=== PATIENT | male | born 1960 | race Caucasian/White ===

== ENCOUNTER 2025-05-05 11:11 | Inpatient (IN) | payer MEDICARE, MEDICAID ==
[~2025-05-05] VITALS: Ht 322.6 cm; Wt 59.0 kg
[~2025-05-05 11:11] MED LIST: INSU100I28 SQ; NEED-123 SQ; [UNRECOGNIZED DRUG - CODE] MC
[2025-05-05 11:48] VITALS: O2SAT 98
[2025-05-05 12:41] LABS: BASOPHILS % 1.0 % (0.0-2.0); EOSINOPHILS % 1.2 % (0.0-5.0); HEMATOCRIT. 53.2 % (42.0-52.0); HEMOGLOBIN. 16.8 g/dL (14.0-18.0); LYMPHOCYTES % 24.2 % (20.0-50.0); MEAN PLATELET VOLUME 10.7 fl (7.4-10.4); MONOCYTES % 8.7 % (2.0-8.0); NEUTROPHILS % 64.9 % (40.0-76.0); PLATELET 164 x1000/uL (130-400); RED BLOOD CELL COUNT 5.83 mill/uL (4.7-6.1); RED CELL DISTRIBUTION WIDTH 17.9 % (11.6-14.6)
[2025-05-05 12:46] LABS: CREATININE 1.0 mg/dL (0.6-1.3); UREA NITROGEN BLOOD 16 mg/dL (9-23)
[2025-05-05 12:48] LABS: ASPARTATE AMINOTRANSFERASE 23 IU/L (<34); BILIRUBIN DIRECT 0.8 mg/dL (<=3.0); BILIRUBIN TOTAL 1.6 mg/dL (0.1-1.0); PROTEIN TOTAL 7.2 g/dL (6.0-8.3)
[2025-05-05] MEDS: SODIUM CHLORIDE 0.9% 1,000 ML IV ONE (12:51)
[2025-05-05] MEDS ORDERED: AZITHROMYCIN 500 MG TABLET PO ONE (14:15)
[2025-05-05] MEDS ORDERED: AMOXICILLIN/POTASSIUM CLAVULANATE 875/125MG TAB PO ONE (14:15)
[2025-05-05] MEDS: AMOXICILLIN/POTASSIUM CLAVULANATE 875/125MG TAB PO SCH ×2 (15:01→22:30)
[2025-05-05] MEDS: AZITHROMYCIN 500 MG TABLET PO SCH (15:01)
[2025-05-05] MEDS ORDERED: ONDANSETRON HCL 4MG/2ML INJ IV PRN (15:30)
[2025-05-05] MEDS ORDERED: CLONIDINE 0.1MG TABLET PO PRN (15:30)
[2025-05-05] MEDS ORDERED: ACETAMINOPHEN 325MG TABLET PO PRN ×2 (15:30)
[2025-05-05] MEDS ORDERED: DOCUSATE SODIUM 100MG CAPSULE PO PRN (15:30)
[2025-05-05] MEDS ORDERED: IPRATROPIUM/ALBUTEROL 0.5-3(2.5)MG/3ML NEB HHN PRN (15:30)
[2025-05-05] MEDS ORDERED: DEXTROSE 50% WATER 50ML SYRINGE IV PRN (15:45)
[2025-05-05] MEDS: PANTOPRAZOLE 40MG DR TABLET PO SCH (16:15)
[2025-05-05 16:43] LABS: INR 1.2
[2025-05-05] MEDS: BLOOD SUGAR DIAGNOSTIC STRIP TEST SCH (17:00)
[2025-05-05] MEDS: EMPAGLIFLOZIN 25MG TABLET PO SCH (17:00)
[2025-05-05] MEDS: INSULIN LISPRO 100 UNITS/ML SUBCUT SCH (17:16)
[2025-05-05 18:54] VITALS: BP 125/89; PULSE 101; RESP 18; TEMP 32.7484
[2025-05-05 20:00] VITALS: BP 127/85; PULSE 97; RESP 18; TEMP 35.9; O2SAT 96
[2025-05-05] MEDS: CARVEDILOL 6.25 MG TABLET PO SCH (22:29)
[2025-05-05] MEDS: ATORVASTATIN CALCIUM 40MG TABLET PO SCH (22:30)
[2025-05-05] MEDS: INSULIN GLARGINE 100 UNITS/ML SUBCUT SCH (22:42)
[2025-05-06] VITALS: BP 105/65; PULSE 73; RESP 19; TEMP 35.6; O2SAT 94
[2025-05-06 04:00] VITALS: BP 96/62; PULSE 74; RESP 19; TEMP 36.4; O2SAT 93
[2025-05-06] MEDS: INSULIN LISPRO 100 UNITS/ML SUBCUT SCH (06:35)
[2025-05-06 08:05] LABS: BASOPHILS % 0.8 % (0.0-2.0); EOSINOPHILS % 2.2 % (0.0-5.0); HEMATOCRIT. 51.8 % (42.0-52.0); HEMOGLOBIN. 16.5 g/dL (14.0-18.0); LYMPHOCYTES % 26.3 % (20.0-50.0); MEAN PLATELET VOLUME 11.3 fl (7.4-10.4); MONOCYTES % 10.7 % (2.0-8.0); NEUTROPHILS % 60.0 % (40.0-76.0); PLATELET 165 x1000/uL (130-400); RED BLOOD CELL COUNT 5.68 mill/uL (4.7-6.1); RED CELL DISTRIBUTION WIDTH 18.0 % (11.6-14.6)
[2025-05-06 08:17] LABS: CREATININE 0.9 mg/dL (0.6-1.3)
[2025-05-06 08:18] LABS: TRIGLYCERIDE 85 mg/dL (0-150); UREA NITROGEN BLOOD 24 mg/dL (9-23)
[2025-05-06 08:19] LABS: LDL CHOLESTEROL 50 mg/dL (5-100)
[2025-05-06 08:22] LABS: T4 FREE 1.31 ng/dL (0.89-1.76)
[2025-05-06] MEDS: ASPIRIN 81MG EC TABLET PO SCH (09:46)
[2025-05-06] MEDS: AZITHROMYCIN 500 MG TABLET PO SCH (09:46)
[2025-05-06] MEDS: CLOPIDOGREL 75MG TABLET PO SCH (09:46)
[2025-05-06 10:12] LABS: TROPONIN I HIGH SENSITIVITY 21 ng/L (3.0-53)
[2025-05-06 10:13] LABS: BILIRUBIN DIRECT 0.6 mg/dL (<=3.0)
[2025-05-06 10:14] LABS: ASPARTATE AMINOTRANSFERASE 32 IU/L (<34); BILIRUBIN TOTAL 1.2 mg/dL (0.1-1.0); PROTEIN TOTAL 6.4 g/dL (6.0-8.3)
[2025-05-06 12:00] VITALS: BP 125/80; PULSE 68; RESP 16; TEMP 36.5; O2SAT 97
[2025-05-06 16:00] VITALS: BP 113/72; PULSE 65; RESP 16; TEMP 36.3; O2SAT 100
[2025-05-06 20:00] VITALS: BP 101/64; PULSE 71; RESP 18; TEMP 35.3; O2SAT 99
[2025-05-07] VITALS: BP 95/56; PULSE 66; RESP 18; TEMP 36; O2SAT 96
[2025-05-07 04:00] VITALS: BP 125/91; PULSE 75; RESP 18; TEMP 36.4; O2SAT 99
[2025-05-07 07:13] LABS: ALPHA FETOPROTEIN TUMOR MARKER < 1.8 ng/mL (0.0-8.4); CA 19-9 28 U/mL (0-35); CANCER ANTIGEN 125 69.6 U/mL (Not Estab.); CARCINOEMBRYONIC AG - SEND OUT 2.4 ng/mL (0.0-4.7)
[2025-05-07 08:00] VITALS: BP 104/75; PULSE 73; RESP 16; TEMP 36.6; O2SAT 95
[2025-05-07 12:00] VITALS: BP 122/87; PULSE 69; RESP 15; TEMP 36.1; O2SAT 99
[2025-05-07 14:04] LABS: BASOPHILS % 0.8 % (0.0-2.0); EOSINOPHILS % 1.2 % (0.0-5.0); HEMATOCRIT. 48.7 % (42.0-52.0); HEMOGLOBIN. 15.5 g/dL (14.0-18.0); LYMPHOCYTES % 24.4 % (20.0-50.0); MEAN PLATELET VOLUME 10.7 fl (7.4-10.4); MONOCYTES % 8.5 % (2.0-8.0); NEUTROPHILS % 65.1 % (40.0-76.0); PLATELET 147 x1000/uL (130-400); RED BLOOD CELL COUNT 5.28 mill/uL (4.7-6.1); RED CELL DISTRIBUTION WIDTH 18.2 % (11.6-14.6)
[2025-05-07 14:24] LABS: CREATININE 1.1 mg/dL (0.6-1.3); UREA NITROGEN BLOOD 30 mg/dL (9-23)
[2025-05-07] MEDS: INSULIN LISPRO 100 UNITS/ML SUBCUT SCH (17:10)
[2025-05-07 20:00] VITALS: BP 120/86; PULSE 72; RESP 18; TEMP 36.2; O2SAT 95
[2025-05-07] MEDS: INSULIN GLARGINE 100 UNITS/ML SUBCUT SCH (21:01)
[2025-05-08] VITALS: BP 120/85; PULSE 75; RESP 18; TEMP 36.3; O2SAT 95
[2025-05-08 04:00] VITALS: BP 120/87; PULSE 78; RESP 18; TEMP 36.1; O2SAT 97
[2025-05-08 07:47] LABS: BASOPHILS % 1.3 % (0.0-2.0); EOSINOPHILS % 1.4 % (0.0-5.0); HEMATOCRIT. 50.2 % (42.0-52.0); HEMOGLOBIN. 15.7 g/dL (14.0-18.0); LYMPHOCYTES % 24.5 % (20.0-50.0); MEAN PLATELET VOLUME 11.6 fl (7.4-10.4); MONOCYTES % 9.9 % (2.0-8.0); NEUTROPHILS % 62.9 % (40.0-76.0); PLATELET 149 x1000/uL (130-400); RED BLOOD CELL COUNT 5.41 mill/uL (4.7-6.1); RED CELL DISTRIBUTION WIDTH 18.8 % (11.6-14.6)
[2025-05-08 08:00] VITALS: BP 127/89; PULSE 71; RESP 17; TEMP 36.5; O2SAT 99
[2025-05-08 08:00] LABS: CREATININE 1.2 mg/dL (0.6-1.3)
[2025-05-08 08:01] LABS: UREA NITROGEN BLOOD 25 mg/dL (9-23)
[2025-05-08] MEDS ORDERED: IOHEXOL-300 100 ML BOTTLE ONE (10:26)
[2025-05-08 11:53] LABS: PROTEIN BODY FLUID < 2.0 gm/dL
[2025-05-08 12:00] VITALS: BP 98/56; PULSE 66; RESP 16; TEMP 36.6; O2SAT 66; O2SAT 98
[2025-05-08] MEDS: GUAIFENESIN 200MG/10ML SUGAR FREE UDC PO PRN (13:03)
[2025-05-08 16:00] VITALS: BP 105/58; PULSE 68; RESP 17; TEMP 36.7; O2SAT 98
[2025-05-08 20:00] VITALS: BP 83/43; PULSE 68; RESP 18; TEMP 36.6; O2SAT 96
[2025-05-09] VITALS: BP 90/55; PULSE 65; RESP 17; TEMP 36.4; O2SAT 95
[2025-05-09 04:00] VITALS: BP 107/70; PULSE 70; RESP 18; TEMP 36.6; O2SAT 97
[2025-05-09 07:11] LABS: BASOPHILS % 0.5 % (0.0-2.0); EOSINOPHILS % 1.2 % (0.0-5.0); HEMATOCRIT. 48.1 % (42.0-52.0); HEMOGLOBIN. 15.2 g/dL (14.0-18.0); LYMPHOCYTES % 18.6 % (20.0-50.0); MEAN PLATELET VOLUME 11.1 fl (7.4-10.4); MONOCYTES % 7.8 % (2.0-8.0); NEUTROPHILS % 71.9 % (40.0-76.0); PLATELET 130 x1000/uL (130-400); RED BLOOD CELL COUNT 5.20 mill/uL (4.7-6.1); RED CELL DISTRIBUTION WIDTH 18.4 % (11.6-14.6)
[2025-05-09 07:41] LABS: CREATININE 1.0 mg/dL (0.6-1.3); UREA NITROGEN BLOOD 24 mg/dL (9-23)
[2025-05-09 08:00] VITALS: BP 99/66; PULSE 69; RESP 18; TEMP 36.4; O2SAT 97
[2025-05-09 12:00] VITALS: BP 101/67; PULSE 67; RESP 17; TEMP 36.4; O2SAT 97
[2025-05-09] MEDS ORDERED: ASPI-1406 PO (13:03)
[2025-05-09] MEDS ORDERED: LANTUSUD SUBCUT (13:03)
[2025-05-09] MEDS ORDERED: CLOP-31 PO (13:03)
[2025-05-09] MEDS ORDERED: LIP40 PO (13:03)
[2025-05-09] MEDS ORDERED: EMPA25TA PO (13:03)
[2025-05-09] MEDS ORDERED: COR6 PO (13:03)
[2025-05-09] MEDS ORDERED: AZIT500T8 PO (13:05)
[2025-05-09 13:57] VITALS: BP 101/67; PULSE 67; RESP 17; TEMP 97.5
== END 2025-05-09 18:12 | disposition home or self-care (01) | DRG 637 ==
LOC: ER 11:46 → 7EST 14:08 → EDBEDREQ 14:12 → EDBEDREQTM 14:12
PROVIDERS: ADMIT Internal Medicine; ATTEND Internal Medicine
PROC: 0W993ZZ Drainage of Right Pleural Cavity, Percutaneous Approach (ICD-10-PCS; principal; 2025-05-08)
DX: E11.65 Type 2 diabetes mellitus with hyperglycemia (principal); J18.9 Pneumonia, unspecified organism; I50.22 Chronic systolic (congestive) heart failure; D84.9 Immunodeficiency, unspecified; Z68.1 Body mass index [BMI] 19.9 or less, adult; C79.71 Secondary malignant neoplasm of right adrenal gland; I31.39 Other pericardial effusion (noninflammatory); J44.0 Chronic obstructive pulmonary disease with (acute) lower respiratory infection; I11.0 Hypertensive heart disease with heart failure; E78.00 Pure hypercholesterolemia, unspecified; I44.4 Left anterior fascicular block; F10.10 Alcohol abuse, uncomplicated; F17.210 Nicotine dependence, cigarettes, uncomplicated; E80.6 Other disorders of bilirubin metabolism; I25.10 Atherosclerotic heart disease of native coronary artery without angina pectoris; G40.909 Epilepsy, unspecified, not intractable, without status epilepticus; I25.5 Ischemic cardiomyopathy; B19.20 Unspecified viral hepatitis C without hepatic coma; I27.20 Pulmonary hypertension, unspecified; R62.7 Adult failure to thrive; E86.0 Dehydration; I25.2 Old myocardial infarction; Z85.038 Personal history of other malignant neoplasm of large intestine; Z90.49 Acquired absence of other specified parts of digestive tract; Z86.73 Personal history of transient ischemic attack (TIA), and cerebral infarction without residual deficits; Z79.02 Long term (current) use of antithrombotics/antiplatelets; Z79.4 Long term (current) use of insulin; Z79.82 Long term (current) use of aspirin; Z79.84 Long term (current) use of oral hypoglycemic drugs; Z79.899 Other long term (current) drug therapy; Z91.199 Patient's noncompliance with other medical treatment and regimen due to unspecified reason
CPT/HCPCS: 32555; 36415; 71045; 71250; 74177; 76604; 80048; 80061; 80076; 82010; 82105; 82378; 82533; 82550; 82962; 83036; 83519; 83615; 83735; 83880; 83930; 84145; 84439; 84443; 84484; 85025; 86301; 86304; 93005; 93306; 93970; 97162; 97166; 99285; A4606; J1815; J7030; Q9967

== ENCOUNTER 2025-06-07 23:47 | Inpatient (IN) | payer MEDICAID, MEDICARE ==
[~2025-06-07] VITALS: Ht 175.3 cm; Wt 60.0 kg
[~2025-06-07 23:47] MED LIST changes: +ASPI-1406 PO; +AZIT500T8 PO; +CLOP-31 PO; +COR6 PO; +EMPA25TA PO; +LANTUSUD SUBCUT; +LIP40 PO
[2025-06-08] VITALS (51 sets, daily range): BP systolic 117–159; BP diastolic 84–121; PULSE 63–85; RESP 12–35; TEMP 36.3–36.7; O2SAT 82–100
[2025-06-08] MEDS: SODIUM CHLORIDE 0.9% (SEPSIS BOLUS) IV ONE (00:21)
[2025-06-08] MEDS: PIPERACILLIN/TAZO 3.375G/50ML 50 ML IV ONE (00:24)
[2025-06-08 00:35] LABS: BASOPHILS % 1.3 % (0.0-2.0); EOSINOPHILS % 1.0 % (0.0-5.0); HEMATOCRIT. 46.0 % (42.0-52.0); HEMOGLOBIN. 14.5 g/dL (14.0-18.0); LYMPHOCYTES % 22.6 % (20.0-50.0); MEAN PLATELET VOLUME 10.0 fl (7.4-10.4); MONOCYTES % 5.7 % (2.0-8.0); NEUTROPHILS % 69.4 % (40.0-76.0); PLATELET 123 x1000/uL (130-400); RED BLOOD CELL COUNT 4.91 mill/uL (4.7-6.1); RED CELL DISTRIBUTION WIDTH 19.3 % (11.6-14.6)
[2025-06-08 00:49] LABS: CREATININE 1.1 mg/dL (0.6-1.3); UREA NITROGEN BLOOD 13 mg/dL (9-23)
[2025-06-08] MEDS: VANCOMYCIN 1G PREMIX 200 ML IV SCH (00:49)
[2025-06-08 00:50] LABS: TROPONIN I HIGH SENSITIVITY 17 ng/L (3.0-53)
[2025-06-08] MEDS: MAGNESIUM 2 G PREMIX 50 ML IV ONE (00:50)
[2025-06-08 00:51] LABS: ASPARTATE AMINOTRANSFERASE 30 IU/L (<34); BILIRUBIN DIRECT 0.6 mg/dL (<=3.0); PHOSPHORUS 4.2 mg/dL (2.5-4.9)
[2025-06-08 00:52] LABS: BILIRUBIN TOTAL 1.1 mg/dL (0.1-1.0); PROTEIN TOTAL 6.3 g/dL (6.0-8.3)
[2025-06-08 01:11] LABS: BG BASE EXCESS -7.8 mmol/L (-2.0-3.0); BG CARBOXYHEMOGLOBIN 2.4 % (0.5-1.5); BG DEOXYHEMOGLOBIN 0.4 % (0.0-5.0); BG FRACTION INSPIRED OXYGEN 100; BG HCO3 ACT 18.9 mmol/L (21.0-28.0); BG METHEMOGLOBIN 0.2 % (0.5-1.5); BG OXYGEN SATURATION 99.6 % (94.0-98.0); BG OXYHEMOGLOBIN 97.0 % (94.0-98.0); BG PCO2 42.7 mmHg (35.0-48.0); BG PH 7.263 (7.350-7.450); BG PO2 214.5 mmHg (83.0-108.0); BG TOTAL HEMOGLOBIN 15.0 g/dL (13.5-17.5); BG TOTAL RESPIRATORY RATE 18 b/min; BG VENT MODE MASK - BIPAP
[2025-06-08] MEDS: LEVETIRACETAM 500MG PREMIX 100 ML IV ONE (01:14)
[2025-06-08] MEDS ORDERED: DEXTROSE 50% WATER 50ML SYRINGE IV PRN (01:15)
[2025-06-08] MEDS ORDERED: POTASSIUM CHLORIDE 40 MEQ in SODIUM CHLORIDE 0.9% 230 ML IV PRN ×2 (01:15→03:15)
[2025-06-08] MEDS ORDERED: BLOOD SUGAR DIAGNOSTIC STRIP TEST PRN ×2 (01:15→03:15)
[2025-06-08] MEDS ORDERED: MAGNESIUM 2 G PREMIX 50 ML IV PRN ×2 (01:15→03:15)
[2025-06-08] MEDS ORDERED: KCL 20MEQ/100ML PREMIX 100 ML IV PRN ×2 (01:15→03:15)
[2025-06-08] MEDS ORDERED: SODIUM PHOSPHATE 15 MMOL in SODIUM CHLORIDE 0.9% 245 ML IV PRN ×2 (01:15→03:15)
[2025-06-08] MEDS ORDERED: INSULIN REGULAR (DRIP) 100 UNITS in SODIUM CHLORIDE 0.9% 99 ML IV SCH ×2 (01:15→03:15)
[2025-06-08] MEDS: ALBUTEROL (0.083%) 2.5MG/3ML NEB HHN ONE (01:44)
[2025-06-08] MEDS: IPRATROPIUM BROMIDE (0.02%) 0.5MG/2.5ML NEB HHN ONE (01:44)
[2025-06-08] MEDS: BLOOD SUGAR DIAGNOSTIC STRIP TEST SCH ×4 (01:45→17:12)
[2025-06-08] MEDS: INSULIN REGULAR 100U/100ML PMX 100 ML IV SCH (01:45)
[2025-06-08] MEDS: FUROSEMIDE 100MG/10ML VIAL IVP ONE (01:57)
[2025-06-08 02:36] LABS: INR 1.3
[2025-06-08] MEDS ORDERED: DOCUSATE SODIUM 100MG CAPSULE PO PRN (03:15)
[2025-06-08] MEDS ORDERED: IPRATROPIUM/ALBUTEROL 0.5-3(2.5)MG/3ML NEB HHN PRN (03:15)
[2025-06-08] MEDS ORDERED: CLONIDINE 0.1MG TABLET PO PRN (03:15)
[2025-06-08] MEDS ORDERED: ONDANSETRON HCL 4MG/2ML INJ IV PRN (03:15)
[2025-06-08] MEDS ORDERED: ACETAMINOPHEN 325MG TABLET PO PRN ×2 (03:15)
[2025-06-08] MEDS ORDERED: MAGNESIUM/ALUMINUM HYDROXIDE/SIMETHICONE 30ML UDC PO PRN (03:15)
[2025-06-08] MEDS ORDERED: LORAZEPAM 2MG/ML UD SYRINGE IV PRN (03:45)
[2025-06-08] MEDS ORDERED: HYDRALAZINE 20MG/ML VIAL IV PRN (04:45)
[2025-06-08] MEDS: FUROSEMIDE 40MG/4ML VIAL IVP SCH (08:10)
[2025-06-08] MEDS: PANTOPRAZOLE SODIUM 40 MG/VIAL IV SCH (08:10)
[2025-06-08] MEDS: ENOXAPARIN 40MG/0.4ML SYR SUBCUT SCH (08:10)
[2025-06-08] MEDS: INSULIN LISPRO 100 UNITS/ML SUBCUT SCH ×3 (08:20→17:18)
[2025-06-08] MEDS ORDERED: LEVETIRACETAM 500MG PREMIX 100 ML IV SCH (09:00)
[2025-06-08 11:37] LABS: PLATELET 142 x1000/uL (130-400); RED BLOOD CELL COUNT 5.27 mill/uL (4.7-6.1); RED CELL DISTRIBUTION WIDTH 19.4 % (11.6-14.6)
[2025-06-08 11:49] LABS: CREATININE 0.9 mg/dL (0.6-1.3); UREA NITROGEN BLOOD 12 mg/dL (9-23)
[2025-06-08 11:51] LABS: PHOSPHORUS 3.6 mg/dL (2.5-4.9)
[2025-06-08] MEDS: LEVETIRACETAM 500MG PREMIX 100 ML IV SCH (12:43)
[2025-06-08] MEDS: IPRATROPIUM/ALBUTEROL 0.5-3(2.5)MG/3ML NEB HHN SCH (14:05)
[2025-06-08] MEDS: THIAMINE HCL 100 MG/1 ML 2ML VIAL IM SCH (14:44)
[2025-06-08] MEDS: SODIUM CHLORIDE 0.9% 500 ML IV ONE (14:44)
[2025-06-08] MEDS: LORAZEPAM 2MG/ML UD SYRINGE IV SCH (15:39)
[2025-06-08] MEDS: DEXT 5%/0.9% NACL 500 ML IV ONE (18:12)
[2025-06-08] MEDS: INSULIN GLARGINE 100 UNITS/ML SUBCUT SCH (22:59)
[2025-06-09] VITALS (22 sets, daily range): BP systolic 102–162; BP diastolic 64–109; PULSE 52–86; RESP 10–42; TEMP 35.7–36.7; O2SAT 90–100
[2025-06-09 00:07] LABS: CLARITY URINE CLOUDY (CLEAR); COLOR URINE YELLOW (YELLOW); GLUCOSE URINE TRACE (NEGATIVE); KETONES URINE NEGATIVE (NEGATIVE); LEUKOCYTE ESTERASE URINE TRACE (NEGATIVE); NITRITE URINE NEGATIVE (NEGATIVE); OCCULT BLOOD URINE 3+ (NEGATIVE); PH URINE 5.0 (4.5-8.0); PROTEIN URINE 1+ (NEGATIVE); SPECIFIC GRAVITY URINE 1.012 (1.005-1.030); UROBILINOGEN URINE 0.2 E.U./dL (0.2-1.0)
[2025-06-09 00:42] LABS: *AMPHETAMINES SCREEN URINE NEGATIVE (NEGATIVE); *BARBITURATES SCREEN URINE NEGATIVE (NEGATIVE); *BENZODIAZEPINES SCREEN URINE PRESUMPTIVE POSITIVE (NEGATIVE); *COCAINE SCREEN URINE NEGATIVE (NEGATIVE); CANNABINOID URINE SCREEN NEGATIVE (NEGATIVE); ECSTASY MDMA SCREEN URINE NEGATIVE (NEGATIVE); METHADONE URINE SCREEN NEGATIVE (NEGATIVE); OPIATES URINE SCREEN NEGATIVE (NEGATIVE); PHENCYCLIDINE URINE SCREEN NEGATIVE (NEGATIVE)
[2025-06-09 01:13] LABS: SQUAMOUS EPITHELIAL CELL URINE 2+ /lpf (RARE/1+)
[2025-06-09 01:14] LABS: BACTERIA URINE TRACE; RBC URINE 50-100 /hpf (0-2)
[2025-06-09 05:28] LABS: BASOPHILS % 0.2 % (0.0-2.0); EOSINOPHILS % 0.2 % (0.0-5.0); HEMATOCRIT. 48.3 % (42.0-52.0); HEMOGLOBIN. 15.6 g/dL (14.0-18.0); LYMPHOCYTES % 13.9 % (20.0-50.0); MEAN PLATELET VOLUME 10.9 fl (7.4-10.4); MONOCYTES % 6.8 % (2.0-8.0); NEUTROPHILS % 78.9 % (40.0-76.0); PLATELET 148 x1000/uL (130-400); RED BLOOD CELL COUNT 5.27 mill/uL (4.7-6.1); RED CELL DISTRIBUTION WIDTH 19.2 % (11.6-14.6)
[2025-06-09 05:44] LABS: CREATININE 0.9 mg/dL (0.6-1.3); TRIGLYCERIDE 80 mg/dL (0-150); UREA NITROGEN BLOOD 21 mg/dL (9-23)
[2025-06-09 05:45] LABS: LDL CHOLESTEROL 38 mg/dL (5-100)
[2025-06-09 05:48] LABS: T4 FREE 1.41 ng/dL (0.89-1.76)
[2025-06-09] MEDS: DEXTROSE 50% WATER 50ML SYRINGE IV PRN ×2 (06:06→22:27)
[2025-06-09] MEDS ORDERED: POTASSIUM CHLORIDE 40 MEQ in DEXT 5% WATER 230 ML IV ONE (07:30)
[2025-06-09] MEDS: KCL 20MEQ/100ML X 2 FOR TOTAL KCL 40MEQ/200ML IV SCH (08:59)
[2025-06-09 10:43] LABS: BG BASE EXCESS -0.5 mmol/L (-2.0-3.0); BG CARBOXYHEMOGLOBIN 1.4 % (0.5-1.5); BG DEOXYHEMOGLOBIN 1.2 % (0.0-5.0); BG FLOW(L/min) 2.00 L/min; BG FRACTION INSPIRED OXYGEN 28; BG HCO3 ACT 22.4 mmol/L (21.0-28.0); BG METHEMOGLOBIN 0.3 % (0.5-1.5); BG OXYGEN SATURATION 98.8 % (94.0-98.0); BG OXYHEMOGLOBIN 97.1 % (94.0-98.0); BG PCO2 32.6 mmHg (35.0-48.0); BG PH 7.455 (7.350-7.450); BG PO2 107.1 mmHg (83.0-108.0); BG SAMPLE SITE RIGHT RADIAL; BG TOTAL HEMOGLOBIN 16.7 g/dL (13.5-17.5); BG VENT MODE NASAL CANNULA
[2025-06-09] MEDS: CEFTRIAXONE 1GM/50ML 50 ML IV SCH (11:57)
[2025-06-09] MEDS: IPRATROPIUM/ALBUTEROL 0.5-3(2.5)MG/3ML NEB HHN SCH (16:08)
[2025-06-09] MEDS: DEXTROSE 50% WATER 50ML SYRINGE IV STA (16:35)
[2025-06-09] MEDS: DEXT 10% WATER 1,000 ML IV SCH (17:12)
[2025-06-09] MEDS: FUROSEMIDE 40MG/4ML VIAL IVP NR (17:13)
[2025-06-10] VITALS (24 sets, daily range): BP systolic 118–144; BP diastolic 81–98; PULSE 77–88; RESP 12–25; TEMP 36.3–36.8; O2SAT 87–100
[2025-06-10] MEDS: BLOOD SUGAR DIAGNOSTIC STRIP TEST SCH (08:00)
[2025-06-10] MEDS: DEXTROSE 50% WATER 50ML SYRINGE IV NR (10:57)
[2025-06-10] MEDS: GLUCAGON,HUMAN RECOMBINANT 1MG/VIAL IV NR (10:58)
[2025-06-10] MEDS ORDERED: SODIUM CHLORIDE 0.45% 500 ML IV ONE (12:15)
[2025-06-10] MEDS ORDERED: SODIUM CHLORIDE 0.45% 1,000 ML IV SCH (12:15)
[2025-06-10 13:58] LABS: CREATININE 0.9 mg/dL (0.6-1.3); UREA NITROGEN BLOOD 14 mg/dL (9-23)
[2025-06-10 19:22] LABS: CREATININE 1.0 mg/dL (0.6-1.3)
[2025-06-10 19:23] LABS: UREA NITROGEN BLOOD 14 mg/dL (9-23)
[2025-06-10 19:24] LABS: ASPARTATE AMINOTRANSFERASE 24 IU/L (<34); LACTATE DEHYDROGENASE 240 IU/L (120-246)
[2025-06-10 19:25] LABS: BILIRUBIN TOTAL 1.6 mg/dL (0.1-1.0); PROTEIN TOTAL 6.2 g/dL (6.0-8.3)
[2025-06-11] VITALS (16 sets, daily range): BP systolic 109–149; BP diastolic 66–92; PULSE 74–106; RESP 12–24; TEMP 35.9–36.9; O2SAT 96–100
[2025-06-11] MEDS: DEXT 10% WATER 1,000 ML IV SCH (05:14)
[2025-06-11] MEDS: FUROSEMIDE 40MG/4ML VIAL IVP SCH (07:15)
[2025-06-11] MEDS ORDERED: SODIUM BICARBONATE 4.2% 2.5MEQ/5ML VIAL IV ONE (07:56)
[2025-06-11 08:00] LABS: CREATININE 0.9 mg/dL (0.6-1.3); UREA NITROGEN BLOOD 15 mg/dL (9-23)
[2025-06-11 08:34] LABS: INR 1.4
[2025-06-11] MEDS: MAGNESIUM OXIDE 400MG TABLET PO SCH (10:14)
[2025-06-11 15:56] LABS: PROTEIN BODY FLUID < 2.0 gm/dL
[2025-06-11 23:13] LABS: BODY FLUID RBC 4 /cu mm (0-2000); BODY FLUID WBC 23 /cu mm (0-200)
[2025-06-11 23:14] LABS: BODY FLUID MONOCYTES 9 %
[2025-06-12] VITALS (17 sets, daily range): BP systolic 103–148; BP diastolic 68–93; PULSE 71–94; RESP 15–23; TEMP 36.2–36.5; O2SAT 90–100
[2025-06-12 06:10] LABS: BASOPHILS % 0.3 % (0.0-2.0); EOSINOPHILS % 1.9 % (0.0-5.0); HEMATOCRIT. 46.5 % (42.0-52.0); HEMOGLOBIN. 15.0 g/dL (14.0-18.0); LYMPHOCYTES % 15.2 % (20.0-50.0); MEAN PLATELET VOLUME 11.1 fl (7.4-10.4); MONOCYTES % 12.8 % (2.0-8.0); NEUTROPHILS % 69.8 % (40.0-76.0); PLATELET 135 x1000/uL (130-400); RED BLOOD CELL COUNT 5.17 mill/uL (4.7-6.1); RED CELL DISTRIBUTION WIDTH 19.3 % (11.6-14.6)
[2025-06-12 06:18] LABS: CREATININE 1.2 mg/dL (0.6-1.3)
[2025-06-12 06:19] LABS: UREA NITROGEN BLOOD 16 mg/dL (9-23)
[2025-06-12] MEDS: POTASSIUM CHLORIDE 20MEQ TABLET SR PO NR (09:19)
[2025-06-12 10:10] LABS: ACTH PLASMA 35.0 pg/mL (7.2-63.3); C-PEPTIDE 3.0 ng/mL (1.1-4.4)
[2025-06-12] MEDS: BLOOD SUGAR DIAGNOSTIC STRIP TEST SCH (12:18)
[2025-06-12] MEDS: GUAIFENESIN 200MG/10ML SUGAR FREE UDC PO PRN (12:49)
[2025-06-12] MEDS: INSULIN LISPRO 100 UNITS/ML SUBCUT SCH (12:50)
[2025-06-13] VITALS: BP 132/90; PULSE 94; RESP 15; TEMP 36.5
[2025-06-13 01:38] VITALS: PULSE 90; RESP 18; O2SAT 96
[2025-06-13 04:00] VITALS: BP 129/89; PULSE 93; RESP 15; TEMP 36.6
[2025-06-13 04:58] VITALS: PULSE 100; RESP 20; O2SAT 98
[2025-06-13 08:00] VITALS: BP 116/76; PULSE 94; RESP 15; TEMP 36.4; O2SAT 97
[2025-06-13 10:16] LABS: BASOPHILS % 0.5 % (0.0-2.0); EOSINOPHILS % 1.7 % (0.0-5.0); HEMATOCRIT. 48.1 % (42.0-52.0); HEMOGLOBIN. 15.3 g/dL (14.0-18.0); LYMPHOCYTES % 14.7 % (20.0-50.0); MEAN PLATELET VOLUME 10.7 fl (7.4-10.4); MONOCYTES % 11.4 % (2.0-8.0); NEUTROPHILS % 71.7 % (40.0-76.0); PLATELET 136 x1000/uL (130-400); RED BLOOD CELL COUNT 5.32 mill/uL (4.7-6.1); RED CELL DISTRIBUTION WIDTH 19.1 % (11.6-14.6)
[2025-06-13 11:04] LABS: CREATININE 1.1 mg/dL (0.6-1.3)
[2025-06-13 11:05] LABS: UREA NITROGEN BLOOD 15 mg/dL (9-23)
[2025-06-13] MEDS ORDERED: FURO-151 MT (14:05)
[2025-06-13 20:00] VITALS: BP 121/83; PULSE 94; RESP 18; TEMP 36.4; O2SAT 97
[2025-06-13] MEDS: POTASSIUM CHLORIDE 20MEQ TABLET SR PO SCH (20:40)
[2025-06-14] VITALS: BP 123/84; PULSE 93; RESP 17; TEMP 36.6; O2SAT 98
[2025-06-14 04:00] VITALS: BP 128/88; PULSE 98; RESP 18; TEMP 36.4; O2SAT 97
[2025-06-14 07:31] LABS: BASOPHILS % 0.7 % (0.0-2.0); EOSINOPHILS % 1.6 % (0.0-5.0); HEMATOCRIT. 47.8 % (42.0-52.0); HEMOGLOBIN. 15.3 g/dL (14.0-18.0); LYMPHOCYTES % 19.8 % (20.0-50.0); MEAN PLATELET VOLUME 10.2 fl (7.4-10.4); MONOCYTES % 11.9 % (2.0-8.0); NEUTROPHILS % 66.0 % (40.0-76.0); PLATELET 145 x1000/uL (130-400); RED BLOOD CELL COUNT 5.25 mill/uL (4.7-6.1); RED CELL DISTRIBUTION WIDTH 18.7 % (11.6-14.6)
[2025-06-14 07:51] LABS: CREATININE 1.0 mg/dL (0.6-1.3)
[2025-06-14 07:52] LABS: UREA NITROGEN BLOOD 18 mg/dL (9-23)
[2025-06-14 08:00] VITALS: BP 123/71; PULSE 95; RESP 16; TEMP 37.2; O2SAT 96
[2025-06-14] MEDS: POTASSIUM CHLORIDE 20MEQ TABLET SR PO NR (11:30)
[2025-06-14 12:00] VITALS: BP 129/84; PULSE 95; RESP 17; TEMP 36; O2SAT 100
[2025-06-14 16:00] VITALS: BP 101/61; PULSE 90; RESP 17; TEMP 36.4; O2SAT 97
[2025-06-14 20:00] VITALS: BP 119/85; PULSE 94; RESP 18; TEMP 36.1; O2SAT 97
[2025-06-15] VITALS: BP 104/68; PULSE 89; RESP 18; TEMP 36.2; O2SAT 97
[2025-06-15 04:00] VITALS: BP 135/75; PULSE 88; RESP 20; TEMP 36; O2SAT 97
[2025-06-15 10:56] VITALS: BP 125/83; PULSE 93; RESP 18; TEMP 97.5
[2025-06-15 12:00] VITALS: BP 125/83; PULSE 93; RESP 18; TEMP 36.4; O2SAT 100
[2025-06-15] MEDS ORDERED: FURO-152 MT (12:04)
[2025-06-15] MEDS ORDERED: LANTUSUD SUBCUT (15:30)
[2025-06-15] MEDS ORDERED: INSU100I28 SQ (15:30)
[2025-06-15 16:00] VITALS: BP 103/58; PULSE 85; RESP 19; TEMP 36.6; O2SAT 98
[2025-06-15] MEDS ORDERED: FUROSEMIDE 20MG TABLET PO SCH (17:00)
== END 2025-06-15 17:30 | disposition home health service (06) | DRG 871 ==
LOC: ER 23:47 → EDBEDREQ 06-08 01:18 → EDBEDREQTM 06-08 01:18 → CVICU 06-08 01:38 → EDBEDREQTM 06-08 01:40 → EDBEDREQ 06-08 01:40 → ENRESERV 06-08 03:49 → 5EST 06-08 21:00 → 6WST 06-13 10:35
PROVIDERS: ADMIT Internal Medicine; ATTEND Internal Medicine
PROC: 5A09357 Assistance with Respiratory Ventilation, Less than 24 Consecutive Hours, Continuous Positive Airway Pressure (ICD-10-PCS; 2025-06-08)
PROC: 0W993ZZ Drainage of Right Pleural Cavity, Percutaneous Approach (ICD-10-PCS; principal; 2025-06-11)
DX: A41.9 Sepsis, unspecified organism (principal); E11.10 Type 2 diabetes mellitus with ketoacidosis without coma; I50.23 Acute on chronic systolic (congestive) heart failure; J69.0 Pneumonitis due to inhalation of food and vomit; N18.6 End stage renal disease; J96.21 Acute and chronic respiratory failure with hypoxia; I13.2 Hypertensive heart and chronic kidney disease with heart failure and with stage 5 chronic kidney disease, or end stage renal disease; I31.39 Other pericardial effusion (noninflammatory); J91.8 Pleural effusion in other conditions classified elsewhere; J44.9 Chronic obstructive pulmonary disease, unspecified; G40.909 Epilepsy, unspecified, not intractable, without status epilepticus; B19.20 Unspecified viral hepatitis C without hepatic coma; F19.10 Other psychoactive substance abuse, uncomplicated; E11.22 Type 2 diabetes mellitus with diabetic chronic kidney disease; I27.20 Pulmonary hypertension, unspecified; Z68.30 Body mass index [BMI] 30.0-30.9, adult; E78.00 Pure hypercholesterolemia, unspecified; F17.210 Nicotine dependence, cigarettes, uncomplicated; E78.5 Hyperlipidemia, unspecified; E87.5 Hyperkalemia; I25.5 Ischemic cardiomyopathy; R62.7 Adult failure to thrive; E11.649 Type 2 diabetes mellitus with hypoglycemia without coma; S80.211A Abrasion, right knee, initial encounter; W18.39XA Other fall on same level, initial encounter; I25.10 Atherosclerotic heart disease of native coronary artery without angina pectoris; I25.2 Old myocardial infarction; Z86.73 Personal history of transient ischemic attack (TIA), and cerebral infarction without residual deficits; Z91.148 Patient's other noncompliance with medication regimen for other reason; Z85.038 Personal history of other malignant neoplasm of large intestine; Z79.82 Long term (current) use of aspirin; Z79.4 Long term (current) use of insulin; Z79.899 Other long term (current) drug therapy; Z90.49 Acquired absence of other specified parts of digestive tract; Y93.89 Activity, other specified; Y92.89 Other specified places as the place of occurrence of the external cause; Y99.8 Other external cause status; Z71.6 Tobacco abuse counseling
CPT/HCPCS: 32555; 36415; 36600; 71045; 71046; 76604; 76700; 80048; 80053; 80061; 80076; 80305; 80320; 81003; 82010; 82024; 82040; 82140; 82375; 82533; 82550; 82805; 82962; 83036; 83605; 83615; 83735; 83880; 83930; 84100; 84145; 84439; 84443; 84484; 84681; 85025; 85027; 88108; 92610; 93005; 93306; 94070; 94640; 94660; 94664; 96365; 96368; 97116; 97162; 97166; 98960; 99291; A4606; G0378; J0696; J1610; J1650; J1815; J1938; J1953; J2060; J2470; J2543; J3373; J3411; J3475; J3480; J3490; J7030; J7050; G0480